=== PATIENT | female | born 1955 | race Caucasian/White ===

== ENCOUNTER 2025-07-23 09:55 | Observation (INO) | payer MEDICARE, MEDICAID ==
[2025-07-23] MEDS ORDERED: Iopamidol 300 61% 100 ML VIAL FS ONE (10:10)
[2025-07-23 10:43] LABS: #Basophils 0.06 10x3/uL (0.0-0.2); #Eosinophils 0.08 10x3/uL (0.0-0.5); #Monocytes 0.62 10x3/uL (0.0-1.1); #Neutrophils 3.89 10x3/uL (1.5-8.4); %Basophils 0.8 % (0.0-2.0); %Eosinophils 1.1 % (0.0-6.0); %Lymphocytes 37.9 % (18.0-47.0); %Monocytes 8.3 % (0.0-10.0); %Neutrophils 51.8 % (40.0-75.0); Hematocrit 35.0 % (34.9-44.5); Hemoglobin 11.5 g/dL (12.0-15.5); Mean Corpuscular Hemoglobin 29.3 pg (27.0-33.0); Mean Corpuscular Volume 89.1 fL (81.6-98.3); Platelet Count 301 10x3/uL (150-450); Red Blood Cell (RBC) Count 3.93 10x6/uL (3.90-5.03); White Blood Cell (WBC) Count 7.51 10x3/uL (3.5-10.5)
[2025-07-23 11:02] LABS: INR-International Normal Ratio 0.9; PTT 25.9 sec (22.0-33.0); Prothrombin Time 10.3 sec (9.5-12.1)
[2025-07-23 11:08] LABS: ALT (SGPT) 19 U/L (Less than 34); AST (SGOT) 29 U/L (11-34); Albumin 4.1 g/dL (3.1-4.5); Alkaline Phosphatase 103 U/L (40-110); Anion Gap 14 mmol/L (10-20); BUN (Urea Nitrogen) 12 mg/dL (9.8-20.1); Bilirubin, Total 0.3 mg/dL (0.3-1.2); Calc. Creatinine Clearance 0 mL/min (70-130); Calcium 9.5 mg/dL (7.8-10.44); Carbon Dioxide 22 mmol/L (23-31); Chloride 107 mmol/L (98-107); Globulin 3.4 g/dL (2.4-3.5); Glucose 98 mg/dL (80-115); Potassium 3.9 mmol/L (3.5-5.1); Sodium 139 mmol/L (136-145)
[2025-07-23] MEDS ORDERED: Acetaminophen 500 MG TAB ONE (13:39)
[2025-07-23] MEDS ORDERED: hydrALAZINE 20 MG/ML VIAL SLOW IVP PRN (13:45)
[2025-07-23] MEDS ORDERED: Melatonin 3 MG TAB PO PRN (13:45)
[2025-07-23] MEDS ORDERED: Senokot S 8.6-50 MG TAB PO PRN (13:45)
[2025-07-23] MEDS ORDERED: Ondansetron PF 4 MG/2 ML Vial IVP PRN (13:45)
[2025-07-23 14:52] VITALS: BMI 27.4
[2025-07-23] MEDS: PNEUMOC 20-VAL CONJ-DIP CRM/PF 0.5 ML SYRINGE IM ONE (16:22)
[2025-07-24 03:53] LABS: #Basophils 0.06 10x3/uL (0.0-0.2); #Eosinophils 0.16 10x3/uL (0.0-0.5); #Monocytes 0.64 10x3/uL (0.0-1.1); #Neutrophils 2.93 10x3/uL (1.5-8.4); %Basophils 0.9 % (0.0-2.0); %Eosinophils 2.3 % (0.0-6.0); %Lymphocytes 44.1 % (18.0-47.0); %Monocytes 9.4 % (0.0-10.0); %Neutrophils 43.0 % (40.0-75.0); Hematocrit 33.7 % (34.9-44.5); Hemoglobin 10.9 g/dL (12.0-15.5); Mean Corpuscular Hemoglobin 29.1 pg (27.0-33.0); Mean Corpuscular Volume 90.1 fL (81.6-98.3); Platelet Count 291 10x3/uL (150-450); Red Blood Cell (RBC) Count 3.74 10x6/uL (3.90-5.03); White Blood Cell (WBC) Count 6.81 10x3/uL (3.5-10.5)
[2025-07-24 04:09] LABS: Anion Gap 14 mmol/L (10-20); BUN (Urea Nitrogen) 13 mg/dL (9.8-20.1); Calc. Creatinine Clearance 85 mL/min (70-130); Calcium 8.8 mg/dL (7.8-10.44); Carbon Dioxide 24 mmol/L (23-31); Cardiac Risk 3.1 (Less than 4.5); Chloride 110 mmol/L (98-107); Cholesterol 175 mg/dl (< 200 Desired); Glucose 96 mg/dL (80-115); HDL Cholesterol 57 mg/dL (>60 Neg Risk); LDL Cholesterol, Calculated 102 mg/dL; Potassium 4.3 mmol/L (3.5-5.1); Sodium 144 mmol/L (136-145); Triglycerides 82 mg/dL (Less than 150)
[2025-07-24] MEDS ORDERED: Ventolin HFA Inhaler 60 PUFF INHALER INH PRN (07:48)
[2025-07-24] MEDS: BuPROPion XL 150 MG ER.TAB PO SCH (09:03)
[2025-07-24] MEDS: Aspirin 81 mg Enteric Coated Tablet PO SCH (09:03)
[2025-07-24] MEDS: Losartan 50 MG TAB PO SCH (09:04)
[2025-07-24] MEDS: Gabapentin 100 MG CAP PO SCH (09:04)
[2025-07-24] MEDS ORDERED: Calcium Carbonate 600 MG + Vit D TAB PO SCH (12:00)
[2025-07-24] MEDS: Calcium Carbonate 600 MG + Vit D TAB PO SCH (12:21)
[2025-07-24] MEDS: Acetaminophen 325 MG TAB PO PRN (15:39)
[2025-07-24 15:42] VITALS: BP 113/67; TEMP 98
== END 2025-07-24 19:22 | disposition home or self-care (01) ==
LOC: CSHERS 09:55 → CSHTELE 13:21
PROVIDERS: ADMIT Internal Medicine; ATTEND Internal Medicine
PROC: B24BZZZ Ultrasonography of Heart with Aorta (ICD-10-PCS; principal; 2025-07-24)
DX: H53.8 Other visual disturbances (principal); R51.9 Headache, unspecified; I10 Essential (primary) hypertension; I73.9 Peripheral vascular disease, unspecified; E78.5 Hyperlipidemia, unspecified; E03.9 Hypothyroidism, unspecified; Z79.890 Hormone replacement therapy; Z79.899 Other long term (current) drug therapy
CPT/HCPCS: 70496; 70498; 70551; 71045; 80048; 80061; 82962; 83036; 85025; 85610; 85730; 93005; 93306; 99284; G0378 ×2; Q9967; 36415; 36416; 80053; 84443

== ENCOUNTER 2025-08-24 10:05 | Outpatient (CLI) | payer MEDICARE | END 2025-08-24 10:06 | disposition home or self-care (01) | LOC: CSHCT 10:05 | PROVIDERS: ATTEND Surgery | DX: K43.2 Incisional hernia without obstruction or gangrene (principal); K57.30 Diverticulosis of large intestine without perforation or abscess without bleeding; K59.00 Constipation, unspecified; Z98.890 Other specified postprocedural states | CPT/HCPCS: 74176 ==

== ENCOUNTER 2025-11-04 20:05 | Emergency (ER) | payer MEDICARE ==
[~2025-11-04 20:05] MED LIST: Iopamidol 370 76% 100 ML VIAL ONE
[2025-11-04 21:03] LABS: Glucose, Urine (Dipstick) Normal (Negative); Leukocyte 100 (Negative); Protein, Urine (Dipstick) Negative (Neg-Trace); Specific Gravity, Urine 1.005 (1.005-1.030)
[2025-11-04 21:24] LABS: Bacteria/HPF None Seen HPF (None Seen); CAUTI Indications for Culture Pelvic or flank pain; RBC/HPF 0-3 HPF (0-3)
[2025-11-04 21:25] LABS: Urine Culture Reflex No No
[2025-11-04 21:28] LABS: INR-International Normal Ratio 0.9; PTT 26.5 sec (22.0-33.0); Prothrombin Time 10.1 sec (9.5-12.1)
[2025-11-04 21:31] LABS: ALT (SGPT) 18 U/L (Less than 34); AST (SGOT) 24 U/L (11-34); Albumin 3.5 g/dL (3.1-4.5); Alkaline Phosphatase 158 U/L (40-110); Anion Gap 17 mmol/L (10-20); BUN (Urea Nitrogen) 9 mg/dL (9.8-20.1); Bilirubin, Total 0.2 mg/dL (0.3-1.2); Calc. Creatinine Clearance 0 mL/min (70-130); Calcium 9.0 mg/dL (7.8-10.44); Carbon Dioxide 20 mmol/L (23-31); Chloride 106 mmol/L (98-107); Globulin 3.7 g/dL (2.4-3.5); Glucose 109 mg/dL (80-115); Lipase 35 U/L (8-78); Potassium 4.0 mmol/L (3.5-5.1); Sodium 139 mmol/L (136-145)
[2025-11-04 21:36] LABS: Troponin I Less than 0.010 ng/mL (< 0.028)
[2025-11-04] MEDS ORDERED: Ketorolac Tromethamine 30 MG (1 mL) VIAL ONE (22:37)
== END 2025-11-05 01:20 | disposition home or self-care (01) ==
LOC: CSHERS 20:05
DX: K43.9 Ventral hernia without obstruction or gangrene (principal); I10 Essential (primary) hypertension; Z87.891 Personal history of nicotine dependence
CPT/HCPCS: 71275; 74174; 80053; 81001; 83690; 83880; 84484; 85610; 85730; 87086; 93005; J1885; J2270; Q9967; 96374; 96375